=== PATIENT | female | born 1945 | race Caucasian/White ===

== ENCOUNTER 2020-10-15 17:04 | Emergency (ER) | payer MEDICARE, SELFPAY ==
[2020-10-15 17:10] VITALS: BP 174/79; PULSE 69; RESP 20; TEMP 36.7; O2SAT 97; BMI 30.1
--- NOTE | 2020-10-15 17:28 | HMH.EDUTC ---
[facility] [place] Clinical Impression: Encounter for laboratory testing for COVID-19 virus Disposition: Home, Self-Care Condition on Discharge: Good Instructions: Preventing the Spread of Coronavirus Discharge Instructions Additional Instructions: *Monitor Temp, Over the counter Motrin or Tylenol as directed/as needed Tylenol every 4 hours and Motrin every 6 hours (as long as your family doctor has told you that you can take it) for fever or pain. and straight to ER if unable to lower temp less than 101.0 after medication given *Warm salt water gargles may help to soothe the throat *Throat Lozenges *Warm fluids like tea with honey may help to soothe the throat *Sleep elevated *Humidifier/Vaporizer Follow up IMMEDIATELY for new or worsening symptoms or no Noticeable improvement over the next 48-72 hours. 911 for difficulty breathing or swallowing You was tested for today for COVID19 your test result should be back in the next 24-48 hours, you may call to the [facility] tomorrow to see if your test results are back and the result [phone] [facility] hours are 9am-9pm You was given a handout with instructions for Self Quarantine and Self isolation for while you wait on test results and what to do if they are positive If you are positive the Health Dept will be contacting you also Referrals: Provider,Referral, [Primary Care Provider] - Time of Disposition: 17:32 Medical Decision Making - Joby Inquiry Pt receiving controlled substance: No Joby was queried for this patient: No Vital Signs: 10/15/20 17:10 Temperature 98.1 F Temperature Source Oral Pulse Rate [Right Brachial] 69 Respiratory Rate 20 Blood Pressure [Right Arm] 174/79 H Blood Pressure Mean [Right Arm] 110 Blood Pressure Source [Right Arm] Automatic Cuff Blood Pressure Position [Right Arm] Sitting 02 Sat by Pulse Oximetry 97 Oxygen Delivery Method Room Air Orders (Tests/Meds): ORDERS Category Date Time Status Covid-19 Nasal PCR Sendout [facility] 10/15/20 17:05 Ordered [facility] [place] H[place] - General Stated complaint: COVID Testing Time Seen by Provider: 10/15/20 17:28 Mode of Arrival: Ambulatory Source of Information: Patient Limitations: No Limitations Description of Symptoms (Recalled from Triage Doc. by RN): PATIENT REQUESTING COVID TEST. DENIES EXPOSURE OR SYMPTOMS HEENT Symptoms (Recalled from RN notes): No Resp Symptoms (Recalled from RN notes): No Skin Symptoms (Recalled from RN notes): No MS Symptoms (Recalled from RN notes): No Functional Status (Recalled from RN notes): WNL - History of Present Illness Provider Complaint: Patient requesting to have COVID test Denies any symptoms or known exposures States that she is traveling this weekend to [place] and wanted to get tested to make sure that she did not have the virus prior to leaving - Related Data Allergies Allergy/AdvReac Type Severity Reaction Status Date / Time No Known Allergies Allergy Verified 10/15/20 17:26 - Worker's Comp Is this a Worker's Comp case?: No [facility] History - Hepatitis A Screen Drug use history?: No High risk sexual behaviors?: No History of sexually transmitted infection?: No Currently employed?: No Childcare worker?: No Do you have indoor plumbing?: Yes Do you have electricity?: Yes Attestation statement:: This patient has been screened for Hepatitis A risk factors. - Social History Alcohol Intake: never Occupational Status: other ROS Obtained: Yes All systems reviewed & no additional complaints, Yes Systems reviewed as appropriate & no additional complaints - Constitutional Constitutional: Reports system reviewed and no additional complaints, except as docu, Denies body ache, Denies chills, Denies fever(s), Denies headache(s) - ENT Ears, Nose, Mouth, and Throat: Reports system reviewed and no additional complaints, except as docu, Denies otalgia, Denies sinus pain, Denies sinus pressure, Denies sore throat - Cardiovascular Cardiov
[2020-10-15 17:34] VITALS: BP 174/79; PULSE 69; RESP 20; TEMP 36.7; O2SAT 97
[2020-10-16 21:23] LABS: Covid-19 Nasal PCR Sendout Lex Not Detected
--- NOTE | 2020-10-17 19:56 | PC.NURSE ---
Addendum entered by Malcolm Gilbert RN 10/17/20 20:01: results were given after verification of pts name and her date of Original Note: pt was in [facility] and had significant other to talk with mule operator who then called me to get results of her covid test for this pt who is flying out of [place] in the am .results given
== END 2020-10-15 17:36 | disposition home or self-care (01) ==
PROVIDERS: Emergency Provider Nurse Practitioner; PCP Internal Medicine
DX: Z20.828 Contact with and (suspected) exposure to other viral communicable diseases (principal)
CPT/HCPCS: 99201; U0004